=== PATIENT | female | born 2000 | race African-American/Black ===

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

== ENCOUNTER 2019-01-15 02:37 | Emergency (ER) | payer MEDICAID ==
[~2019-01-15] VITALS: Ht 167.6 cm; Wt 76.2 kg
[2019-01-15 02:45] VITALS: BP 125/76
[2019-01-15] MEDS ORDERED: IBUPROFEN 600 MG TABLET PO ONE ×2 (03:00→03:04)
--- NOTE | 2019-01-15 03:10 | NUR ---
Patient discharged to home in stable condition. Written and verbal after care instructions given. Patient verbalizes understanding of instruction.
== END 2019-01-15 03:12 | disposition home or self-care (01) ==
LOC: ER 02:39
DX: M94.0 Chondrocostal junction syndrome [Tietze] (principal); J06.9 Acute upper respiratory infection, unspecified; F90.9 Attention-deficit hyperactivity disorder, unspecified type; F32.9 Major depressive disorder, single episode, unspecified; F10.10 Alcohol abuse, uncomplicated; F17.200 Nicotine dependence, unspecified, uncomplicated; Y90.9 Presence of alcohol in blood, level not specified

== ENCOUNTER 2019-06-10 23:09 | Emergency (ER) | payer MEDICAID ==
[~2019-06-10] VITALS: Ht 167.6 cm; Wt 75.3 kg
[2019-06-10 23:10] VITALS: BP 117/61
== END 2019-06-11 00:47 | disposition home or self-care (01) ==
LOC: ER 23:17
DX: R07.89 Other chest pain (principal); R00.1 Bradycardia, unspecified; F32.9 Major depressive disorder, single episode, unspecified; F90.9 Attention-deficit hyperactivity disorder, unspecified type; F10.10 Alcohol abuse, uncomplicated; F17.200 Nicotine dependence, unspecified, uncomplicated; Y90.9 Presence of alcohol in blood, level not specified
CPT/HCPCS: 71045-TC; 84703-TC

== ENCOUNTER 2019-06-19 16:51 | Emergency (ER) | payer MEDICAID ==
[~2019-06-19] VITALS: Ht 167.6 cm; Wt 75.3 kg
--- NOTE | 2019-06-19 17:14 | NUR ---
CAME IN FOR COUGH, NASAL CONGESTION AND SORE THROAT x 3 DAYS. TO ER BED 10, HOOKED TO MONITOR, PROVIDED W WARM BLANKET, AWAITING MD APPIAH
--- NOTE | 2019-06-19 17:28 | NUR ---
CANDIDO ARMSTRONG AT BEDSIDE
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
--- NOTE | 2019-06-19 18:20 | NUR ---
Patient discharged to home in stable condition. Written and verbal after care instructions given. Patient verbalizes understanding of instruction.
[2019-06-19 18:26] VITALS: BP 132/70
== END 2019-06-19 18:27 | disposition home or self-care (01) ==
LOC: ER 17:01
DX: J06.9 Acute upper respiratory infection, unspecified (principal); B95.0 Streptococcus, group A, as the cause of diseases classified elsewhere; F90.9 Attention-deficit hyperactivity disorder, unspecified type; F32.9 Major depressive disorder, single episode, unspecified; F10.10 Alcohol abuse, uncomplicated; F17.200 Nicotine dependence, unspecified, uncomplicated; Y90.9 Presence of alcohol in blood, level not specified
CPT/HCPCS: 86403-TC; 87070-TC

== ENCOUNTER 2019-07-25 19:01 | Emergency (ER) | payer MEDICAID ==
[~2019-07-25] VITALS: Ht 167.6 cm; Wt 73.5 kg
[2019-07-25 19:18] VITALS: BP 120/79
--- NOTE | 2019-07-25 21:05 | NUR ---
ER PA AT BEDSIDE
== END 2019-07-25 21:14 | disposition home or self-care (01) ==
LOC: ER 19:02
DX: J06.9 Acute upper respiratory infection, unspecified (principal); B09 Unspecified viral infection characterized by skin and mucous membrane lesions; F90.9 Attention-deficit hyperactivity disorder, unspecified type; F32.9 Major depressive disorder, single episode, unspecified; F17.200 Nicotine dependence, unspecified, uncomplicated

== ENCOUNTER 2019-08-02 17:26 | Emergency (ER) | payer MEDICAID ==
[~2019-08-02] VITALS: Ht 167.6 cm; Wt 74.4 kg
[2019-08-02 17:40] VITALS: BP 114/70
--- NOTE | 2019-08-02 18:55 | NUR ---
Patient discharged to home in stable condition. Written and verbal after care instructions given. Patient verbalizes understanding of instruction.
== END 2019-08-02 18:56 | disposition home or self-care (01) ==
LOC: ER 17:28
DX: L21.0 Seborrhea capitis (principal); J00 Acute nasopharyngitis [common cold]; B30.9 Viral conjunctivitis, unspecified; F32.9 Major depressive disorder, single episode, unspecified; F90.9 Attention-deficit hyperactivity disorder, unspecified type; F17.200 Nicotine dependence, unspecified, uncomplicated; Z60.2 Problems related to living alone

== ENCOUNTER 2020-02-11 14:12 | Emergency (ER) | payer MEDICAID ==
[~2020-02-11] VITALS: Ht 167.6 cm; Wt 72.6 kg
[2020-02-11 14:26] VITALS: BP 136/66
--- NOTE | 2020-02-11 14:30 | NUR ---
AT BEDSIDE FOR XRAY.
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
--- NOTE | 2020-02-11 15:53 | NUR ---
Patient discharged to home in stable condition. Written and verbal after care instructions given. Patient verbalizes understanding of instruction.
== END 2020-02-11 15:55 | disposition home or self-care (01) ==
LOC: ER 14:12
DX: S43.491A Other sprain of right shoulder joint, initial encounter (principal); F32.9 Major depressive disorder, single episode, unspecified; F90.9 Attention-deficit hyperactivity disorder, unspecified type; F17.200 Nicotine dependence, unspecified, uncomplicated; Z60.2 Problems related to living alone; V49.69XA Unspecified car occupant injured in collision with other motor vehicles in traffic accident, initial encounter; Y93.89 Activity, other specified; Y92.413 State road as the place of occurrence of the external cause; Y99.8 Other external cause status
CPT/HCPCS: 73030-TC